=== PATIENT | female | born 1995 | race Caucasian/White ===

== ENCOUNTER 2018-06-08 11:18 | Emergency (ER) | payer SELFPAY ==
[2018-06-08 11:21] VITALS: BP 116/87; PULSE 73; RESP 18; TEMP 36.6; O2SAT 100; BMI 26.6
--- NOTE | 2018-06-08 11:35 | CT_ITS ---
STUDY: CT ABDOMEN AND PELVIS WITHOUT CONTRAST REASON FOR EXAM: Female, 23 years old. Generalized abdominal pain RADIATION DOSAGE (If Supplied By Facility): CTDIvol = ( 8.24 ) mGy, DLP = ( 397.52 ) mGycm TECHNIQUE: Transaxial images were obtained from the dome of the diaphragm to the symphysis pubis without oral contrast, and without intravenous contrast. Sagittal and coronal images were reconstructed. Individualized dose optimization techniques were used for this CT. COMPARISON: None. FINDINGS: The visualized lung bases are unremarkable. The visualized portions of the heart are within normal limits. Normal liver. Normal gallbladder and extrahepatic biliary system. Normal spleen. Normal pancreas. Normal bilateral adrenal glands. Normal right kidney. There is an extrarenal pelvis of the left kidney but no husam hydronephrosis. No urinary tract calcifications are seen. Normal visualized stomach. Normal small intestine. Normal colon. The appendix is visualized and appears normal. Normal abdominal aorta. Normal inferior vena cava. Normal retroperitoneum. Normal urinary bladder. Normal visualized uterus. Physiologic quantity of free fluid is identified in the midportion the pelvis. Normal abdominal wall. There is transitional anatomy of the lumbosacral junction with pseudoarticulation on the right side. No lytic or sclerotic bone lesion demonstrated. CT/Abdomen/Pelvis without Cont IMPRESSION: No hydronephrosis or urinary tract calcifications. Electronically Signed: Francisco Johnston MD at 13:26 EST , Service support ,
[2018-06-08] MEDS: Dicyclomine 10 MG Capsule 20 MG PO (11:45)
[2018-06-08] MEDS: Ondansetron 4 MG/2 ML Vial IV (11:45)
[2018-06-08 12:03] LABS: Mucous, Urine 0 SEEN /hpf (<or=2+); Red Blood Cells-Urine 0 SEEN /hpf (0-5); White Blood Cells 0 SEEN /hpf (0-5)
[2018-06-08 12:06] LABS: Absolute Lymphocyte Count 2.61 X10^3/ul (0.83-4.51); Absolute Neutrophil Count 3.4 X10^3/uL (2.0-7.7); Basophil# 0.02 X10^3/uL; Basophil% 0.3 % (0-1); Eosinophils% 2.9 % (0-5); Hematocrit 43.6 % (37-47); Hemoglobin 14.3 g/dl (12.0-15.0); Lymphocyte # 2.61 X10^3/ul (4.0); Lymphocyte % 38.3 % (19-41); Mean Corp Hgb Conc 32.8 g/gl (32-36); Mean Corpuscular Hgb 30.8 pg (27.0-32.0); Monocyte# 0.58 X10^3/uL; Monocyte% 8.5 % (0-10); Neutrophil # 3.39 X10^3/uL (2.7-7.7); Neutrophil % 49.9 % (47-70); POSITIVE COUNT NO; POSITIVE DIFFERENTIAL NO; POSITIVE MORPHOLOGY NO; Platelet Count 298 K/mm3 (150-450); RBC Distribution Width CV 12.2 % (11.6-14.6); RBC Distribution Width SD 41.5 fl (35.1-43.9); Red Blood Count 4.64 M/mm3 (4.2-5.4); White Blood Count 6.8 K/mm3 (4.4-11.0)
[2018-06-08 12:07] LABS: Color, Urine Yellow (Yellow); Glucose, Dipstick Normal (Normal); Ketone-Dipstick Negative (Negative); Leukocyte Esterase-Dipstick Negative /ul (Negative); Nitrite-Dipstick Negative (Negative); Occult Blood-Urine Negative /ul (Negative); Protein-Dipstick Negative (Negative); Specific Gravity, Urine 1.005 (1.002-1.030); Urine Bilirubin Dipstick Negative (Negative); Urine Clarity Clear (Clear); Urine Urobilinogen Normal (Normal)
[2018-06-08 12:08] LABS: Internal QC Validated? YES +Cl - CLEAR BKGD; Pregnancy, Urine Negative Negative
[2018-06-08 12:10] LABS: Bacteria RARE /hpf (None Seen); Squamous Epithelial Cells - UA 0-5 SEEN /hpf (5-10)
[2018-06-08 12:21] LABS: ALB/GLOB Ratio 1.2 RATIO (0.9-2.4); AST(SGOT) 14 U/L (15-37); Alanine Aminotransfer ALT/SGPT 18 U/L (13-56); Albumin, Serum 4.3 g/dL (3.2-5.0); Alkaline Phosphatase 70 U/L (45-117); Anion Gap 8 (5-15); BUN 13 mg/dL (7-18); BUN/Creat Ratio 15.5 RATIO (10-20); Calcium,Total 9.4 mg/dL (8.5-10.1); Chloride 109 mmol/L (98-107); Creatinine, Serum 0.84 mg/dL (0.55-1.02); EST Glomerular Filtration Rate 90 mL/min (>60); Est Glom Filt Rate - Afr Amer 109 mL/min (>60); Estimated Creatinine Clearance 94.53 ml/min; Globulin 3.7 g/dL (2.2-4.2); Glucose 93 mg/dL (74-106); Lipase 140 U/L (73-393); Potassium 3.9 mmol/L (3.5-5.1); Sodium Level 142 mmol/L (136-145)
--- NOTE | 2018-06-08 13:32 | ED.VISSUMM ---
- ER Visit Summary Date of Service: 06/08/18 Chief Complaint: Abdominal pain History of Present Illness: The patient is a 23 F who presents with abdominal pain. She has had this pain for 3 weeks. It is diffuse across her abdomen. Nothing makes it better but food makes it worse. She has had nausea without vomiting. No diarrhea or constipation. No urinary symptoms. She has had decreased appetite. No history of abdominal surgeries in the past. She was seen in urgent care who placed her on ranitidine but it did not help. Physical Examination: Vital signs reviewed. HEENT exam unremarkable. Heart is regular rate and rhythm without murmurs. Lungs are clear to auscultation. Abdomen is soft and nontender. Extremities reveal no edema. Skin exam normal. Neurologic exam normal. Test Results: Laboratory studies unremarkable. Urine and hCG negative. CAT scan of the abdomen pelvis reveals nothing acute Emergency Department Course and Treatment: Patient was given Bentyl orally and IV Zofran. She feels improved. I am not quite sure what the etiology of her pain is. I will give her Bentyl for home. She will follow-up with her PCP for further testing Treatment Plan: [] Disposition: Discharge Impression: Abdominal pain This note was generated with [employer] dictation software. It may contain incorrect words, spelling, and punctuation that were not noted in review of the chart prior to signing ED Disposition - Plan for ED Patient: Referrals: Care Physician,No Primary [Primary Care Provider] -
--- NOTE | 2018-06-08 13:33 | ED.DEP ---
ED Disposition - Plan for ED Patient: Disposition: Home or Assisted Living Instructions: ED Abdominal Pain Unkn Cause Prescriptions: Dicyclomine HCl [Bentyl] 20 mg PO TIDAC #20 cap Referrals: Care Physician,No Primary [Primary Care Provider] -
[2018-06-08 13:40] VITALS: BP 136/82; PULSE 79; RESP 16; O2SAT 98
== END 2018-06-08 13:42 | disposition home or self-care (01) ==
PROVIDERS: Emergency Provider Emergency Medicine
DX: R10.84 Generalized abdominal pain (principal)
CPT/HCPCS: 74176; 80053; 81001; 81025; 83690; 85025; 96374; 96375; 99284; J2405

== ENCOUNTER 2021-10-16 16:42 | Emergency (ER) | payer SELFPAY ==
[2021-10-16 16:43] VITALS: BP 131/89; PULSE 81; RESP 16; TEMP 36.9; O2SAT 100; BMI 36.2
--- NOTE | 2021-10-16 17:18 | EDS_ITS ---
HPI HPI - GI History of Present Illness Chief Complaint: Abd Pain Detail of Chief Complaint: Abdominal pain that started yesterday Informant: patient Abdominal Pain/Flank Pain Maximum Severity: 8/10 Nausea/Vomiting/Emesis GI Symptom: Positive for Nausea Narrative Narrative: Abdominal pain that started yesterday. Patient states the pain is more right- sided. Patient's not sure if she ate something that did not agree with her. Patient states that she had her gallbladder out in December of last year and ever since that time certain food seem to bother her. Patient woke up this morning and felt good not to go to muslim but while driving she started having more pain. She has had some nausea but no vomiting. She denies diarrhea. She denies blood in her stool or black tarry stool. Patient denies dysuria. Her last menstrual period was about a week ago. Prior similar symptoms: No PFSH PFSH Medical History (Updated 10/16/21 @ 18:[address] Nery Marte, ) Depression Home Medications Ranitidine [Zantac] 150 mg PO DAILY ALLERGIES 06/08/18 [History Last Taken 06/07/18 150 MG] dicyclomine 10 mg capsule 20 mg PO TIDAC #20 caps 06/08/18 [Rx Last Taken U nknown] dicyclomine 20 mg tablet 20 mg PO TID PRN cramps #20 tabs 10/16/21 [Rx Last Taken Unknown] Allergy/AdvReac Type Severity Reaction Status Date / Time No Known Allergies Allergy Verified 10/16/21 16:46 Surgical History (Updated 10/16/21 @ 17:48 by Soraya Gardner) Hx of cholecystectomy Social History Smoking Status: Never smoker ROS ROS ED Review of Systems ROS Unobtainable: other Constitutional Constitutional ED: Reports lethargy; Denies chills, fever(s), sweats or weight loss Eyes Eyes: Denies blurry vision, change in vision or diplopia ENT ENT ED: Denies rhinorrhea or sore throat Cardiovascular Cardiovascular: Reports chest pain and racing heartbeat; Denies orthopnea Respiratory/Chest Respiratory/Chest: Reports dyspnea and dyspnea on exertion; Denies cough, orthopnea or sputum Gastrointestinal Gastrointestinal: Reports abdominal pain and nausea; Denies diarrhea or vomiting Genitourinary Genitourinary ED: Denies dysuria, hematuria or urinary frequency Musculoskeletal Musculoskeletal: Denies arthralgias, back pain, myalgias or neck pain Integumentary Denies abscess, Abrasions or rash Neurologic Neurologic: Denies headache(s) or weakness Psychiatric Psychiatric: Denies anxiety, depression or suicidal thoughts Endocrine Endocrinology: Denies polydipsia, polyphagia or polyuria Hematologic/Lymphatic Hematologic/Lymphatic: Denies easy bleeding, easy bruising or lymphadenopathy Allergic/Immunologic Allergic/Immunologic ED: Denies mouth swelling, tongue swelling or urticaria EXAM Physical Exam Const Vital Signs: 10/16/21 16:43 Temperature 98.5 F Temperature Source Temporal Pulse Rate 81 Respiratory Rate 16 Blood Pressure 131/89 H Blood Pressure Mean 103 Pulse Ox 100 Oxygen Delivery Method Room Air Positive well nourished and well developed General Appearance ED: well developed and NAD HEENT Reports TM's clear and moist mucous membranes normocephalic and atraumatic; Negative for trauma or tenderness Tympanic Membrane ED: Yes TM's clear Eyes PERRL and EOMs intact bilaterally General Eye ED: Negative for pale conjunctiva or scleral icterus Neck no lymphadenopathy, supple and no JVD General: Negative for tenderness Chest Wall inspection of chest normal and palpation of chest normal Chest: Negative for tenderness Resp normal respiratory effort and clear to auscultation bilaterally Effort and Inspection: Negative for respiratory distress or pain with movement Auscultation: Negative for rhonchi, wheezes or diminished lung sounds Cardio regular rate, regular rhythm, S1 normal heart sound, S2 normal heart sound and no murmurs Peripheral Pulses: pulses 2+ throughout GI normal to inspection, nondistended, normoactive bowel sounds, soft to palpation, non-distended and no masses GI Narrative: Patient with really diffuse tenderness palpation over the right upper quadrant as well as the epigastric region. She has tenderness and guarding over the right lower quadrant. She got some mild tenderness over the left lower quadrant. There is no rebound, rigidity, or peritoneal signs. Back/Spine no CVA tenderness and no thoracic nor lumbar tenderness Extremity normal to inspection General Extremety ED: Negative for edema General Extremity: Negative for edema Neuro oriented x3, CN's II-XII intact bilaterally, no sensory deficits noted and gait normal Sensorium / Orientation: awake, alert, oriented to person, oriented to place and oriented to time Motor Exam: strength 5/5 throughout and strength abnormal Psych mental status grossly normal Skin no rashes or lesions noted and no wounds MDM MDM MDM Narrative Medical decision making narrative: IV line established on arrival. Patient did not want thing for pain. Patient had normal lab work-up and normal urinalysis. She had a CT scan of the M pelvis without contrast that was essentially unremarkable. At this point etiology of patient pain is unclear. Patient states that she had similar pain up to 6 months before her gallbladder came out and she has had intermittent pain like this that will come and then disappear and then come back. Patient will be given a referral to GI for follow-up. She is given a prescription for Bentyl. Patient advised to return if worsening pain, fever, vomiting, or condition should worsen anyway. Lab Data Attestation: I reviewed the patient's lab results. Labs: Laboratory Results - last 24 hr 10/16/21 10/16/21 10/16/21 17:30 17:37 17:37 WBC 9.4 RBC 4.86 Hgb 12.6 Hct 40.9 MCV 84.2 MCH 25.9 L MCHC 30.8 L RDW Std Deviation 49.7 H RDW Coeff of Otilio 16.0 H Plt Count 388 MPV 9.6 Immature Gran % (Auto) 0.300 Neut % (Auto) 66.5 Lymph % (Auto) 24.1 [place] % (Auto) 6.8 Eos % (Auto) 1.8 Baso % (Auto) 0.5 Absolute Neuts (auto) 6.2 Absolute Lymphs (auto) 2.26 Nucleated RBC % 0 Sodium 142 Potassium 3.7 Chloride 110 H Carbon Dioxide 28.0 Anion Gap 4 L BUN 15 Creatinine 1.01 Estim Creat Clear Calc 67.34 Est GFR (MDRD) Af Amer 85 Est GFR (MDRD) Non-Af 71 BUN/Creatinine Ratio 14.9 Glucose 100 Calcium 9.2 Total Bilirubin 0.20 AST 15 ALT 18 Alkaline Phosphatase 84 Total Protein 7.6 Albumin 3.6 Globulin 4.0 Albumin/Globulin Ratio 0.9 Lipase 113 Serum , Qual Urine Color Yellow Urine Clarity Clear Urine pH 7.0 Ur Specific Spring 1.015 Urine Protein 15 H Urine Glucose (UA) Normal Urine Ketones Negative Urine Occult Blood Negative Urine Nitrite Negative Urine Bilirubin Negative Urine Urobilinogen Normal Ur Leukocyte Esterase 100 H Urine RBC 0 SEEN Urine WBC 0-5 SEEN Ur Squamous Epith Cells 5-10 SEEN Urine Bacteria 2+ Urine Mucus 0 SEEN 10/16/21 17:37 WBC RBC Hgb Hct MCV MCH MCHC RDW Std Deviation RDW Coeff of Otilio Plt Count MPV Immature Gran % (Auto) Neut % (Auto) Lymph % (Auto) [place] % (Auto) Eos % (Auto) Baso % (Auto) Absolute Neuts (auto) Absolute Lymphs (auto) Nucleated RBC % Sodium Potassium Chloride Carbon Dioxide Anion Gap BUN Creatinine Estim Creat Clear Calc Est GFR (MDRD) Af Amer Est GFR (MDRD) Non-Af BUN/Creatinine Ratio Glucose Calcium Total Bilirubin AST ALT Alkaline Phosphatase Total Protein Albumin Globulin Albumin/Globulin Ratio Lipase Serum , Qual NEGATIVE Urine Color Urine Clarity Urine pH Ur Specific Spring Urine Protein Urine Glucose (UA) Urine Ketones Urine Occult Blood Urine Nitrite Urine Bilirubin Urine Urobilinogen Ur Leukocyte Esterase Urine RBC Urine WBC Ur Squamous Epith Cells Urine Bacteria Urine Mucus Radiography Diagnostic Testing: Clinical Impression(s) from Imaging Studies Abdomen/Pelvis CT 10/16/21 17:18 IMPRESSION: Cholecystectomy. No acute abnormality. Electronically Signed: Fabian Vanessa MD at 18:36 EDT , Discharge Plan Triage Chief Complaint: Abd Pain ED Provider: Nery Marte Dx/Rx/DC Orders Clinical Impression: Abdominal pain Instructions: ED Abdominal Pain Unkn Cause Fem Prescriptions: New dicyclomine 20 mg tablet 20 mg PO TID PRN (Reason: cramps) Qty: 20 0RF No Action Ranitidine [Zantac] 150 MG tablet 150 mg PO DAILY dicyclomine 10 MG capsule 20 mg PO TIDAC Qty: 20 0RF Primary Care Provider: Care Physician,No Primary Referrals: Friend,Christiano, DO [STAFF PHYSICIAN] - Care Physician,No Primary [Primary Care Provider] - Disposition Disposition: Home, Self Care
--- NOTE | 2021-10-16 17:18 | CT_ITS ---
EXAM: CT ABDOMEN AND PELVIS WITHOUT INTRAVENOUS CONTRAST CLINICAL INDICATION: Pain TECHNIQUE: Helically acquired images were obtained of the abdomen and pelvis without intravenous contrast. This CT exam was performed using one or more of the following dose reduction techniques: automated exposure control, adjustment of the mA and/or kV according to patient size, and/or use of iterative reconstruction technique. This report was created using [employer] report generation technology. RADIATION DOSE: CTDIvol = 21.23 mGy, DLP = 1336.65 mGy-cm. COMPARISON: 06/08/2018. FINDINGS: LOWER THORAX: Unremarkable. Lung bases are clear. No cardiomegaly. No significant pericardial effusion. ABDOMEN: LIVER: Unremarkable. Homogeneous. GALLBLADDER AND BILE DUCTS: Cholecystectomy. No intra- or extrahepatic biliary ductal dilation. PANCREAS: Unremarkable. No focal cystic mass. SPLEEN: Unremarkable. Normal size without focal cystic or solid mass. ADRENALS: Unremarkable. No nodules. KIDNEYS AND URETERS: Unremarkable. Normal renal size and position. No hydronephrosis. STOMACH AND BOWEL: Unremarkable. No stomach or bowel distention. No focal inflammatory change. PELVIS: APPENDIX: Normal appendix. BLADDER: Unremarkable. REPRODUCTIVE: Unremarkable as visualized. No mass. ABDOMEN and PELVIS: INTRAPERITONEAL SPACE: Unremarkable. No ascites or other fluid collection. No free air. BONES/JOINTS: Unremarkable. No suspicious lytic or blastic abnormality. SOFT TISSUES: Unremarkable. No discrete abdominal or pelvic wall hernia. VASCULATURE: Unremarkable. Abdominal aorta is non-dilated. LYMPH NODES: Unremarkable. No enlarged lymph nodes. CT/Abdomen/Pelvis without Cont IMPRESSION: Cholecystectomy. No acute abnormality. Electronically Signed: Fabian Vanessa MD at 18:36 EDT ,
[2021-10-16 17:50] LABS: Mucous, Urine 0 SEEN /hpf (<or=2+); Red Blood Cells-Urine 0 SEEN /hpf (0-5)
[2021-10-16] MEDS: 0.9% Normal Saline 1,000 ML 125 ML IV (17:51)
[2021-10-16 17:52] LABS: Absolute Lymphocyte Count 2.26 X10^3/uL (0.83-4.51); Absolute Neutrophil Count 6.2 X10^3/uL (2.0-7.7); Basophil# 0.05 X10^3/uL; Basophil% 0.5 % (0-1); Eosinophil# 0.17 X10^3/uL; Eosinophils% 1.8 % (0-5); Hematocrit 40.9 % (37-47); Hemoglobin 12.6 g/dL (12.0-15.0); Lymphocyte # 2.26 X10^3/ul (0.83-4.51); Lymphocyte % 24.1 % (19-41); Mean Corp Hgb Conc 30.8 g/dL (32-36); Mean Corpuscular Hgb 25.9 pg (27.0-32.0); Mean Corpuscular Volume 84.2 fL (81-99); Mean Platelet Vol. 9.6 fl (6.2-12.0); Monocyte# 0.64 X10^3/uL; Monocyte% 6.8 % (0-10); NRBC Flagged by Analyzer 0 % (0-5); Neutrophil # 6.24 X10^3/uL (2.7-7.7); Neutrophil % 66.5 % (47-70); Platelet Count 388 K/mm3 (150-450); RBC Distribution Width SD 49.7 fl (35.1-43.9); Red Blood Count 4.86 M/mm3 (4.2-5.4); White Blood Count 9.4 K/mm3 (4.4-11.0)
[2021-10-16 17:55] LABS: Color, Urine Yellow (Yellow); Glucose, Dipstick Normal (Normal); Ketone-Dipstick Negative (Negative); Leukocyte Esterase-Dipstick 100 /ul (Negative); Nitrite-Dipstick Negative (Negative); Occult Blood-Urine Negative /ul (Negative); Protein-Dipstick 15 mg/dl (Negative); Specific Gravity, Urine 1.015 (1.002-1.030); Urine Bilirubin Dipstick Negative (Negative); Urine Clarity Clear (Clear); Urine Urobilinogen Normal (Normal)
[2021-10-16 18:01] LABS: Internal QC Validated? YES +Cl - CLEAR BKGD; Pregnancy, Serum, hCG Quali. NEGATIVE Negative
[2021-10-16 18:04] LABS: Bacteria 2+ /hpf (None Seen); Squamous Epithelial Cells - UA 5-10 SEEN /hpf (5-10); White Blood Cells 0-5 SEEN /hpf (0-5)
[2021-10-16 18:09] LABS: ALB/GLOB Ratio 0.9 RATIO (0.9-2.4); AST(SGOT) 15 U/L (15-37); Alanine Aminotransfer ALT/SGPT 18 U/L (13-56); Albumin, Serum 3.6 g/dL (3.2-5.0); Alkaline Phosphatase 84 U/L (45-117); Anion Gap 4 (5-15); BUN 15 mg/dL (7-18); BUN/Creat Ratio 14.9 RATIO (10-20); Calcium,Total 9.2 mg/dL (8.5-10.1); Chloride 110 mmol/L (98-107); Creatinine, Serum 1.01 mg/dL (0.55-1.02); EST Glomerular Filtration Rate 71 mL/min (>60); Est Glom Filt Rate - Afr Amer 85 mL/min (>60); Estimated Creatinine Clearance 67.34 ml/min; Glucose 100 mg/dL (74-106); Lipase 113 U/L (73-393); Potassium 3.7 mmol/L (3.5-5.1); Protein, Total 7.6 g/dL (6.4-8.2); Sodium Level 142 mmol/L (136-145)
== END 2021-10-16 19:01 | disposition home or self-care (01) ==
PROVIDERS: Emergency Provider Emergency Medicine; Visit Provider Emergency Medicine
DX: R10.9 Unspecified abdominal pain (principal); R11.0 Nausea; Z90.49 Acquired absence of other specified parts of digestive tract
CPT/HCPCS: 74176; 80053; 81001; 83690; 84703; 85025; 99283; A4216

== ENCOUNTER → 2021-11-14 | Outpatient (CLI) | payer SELFPAY ==
[2021-11-14 14:22] LABS: Erythrocyte Sedimentation Rate 29 mm/hr (0-30)
[2021-11-14 14:47] LABS: Hemoglobin A1c 5.5 % (3.8-5.6)
[2021-11-14 15:06] LABS: CRP < 2.90 mg/L (0.0-3.0); Free T3 2.2 pg/mL (2.18-3.98); LDH 261 U/L (84-246); T4 Free Direct 0.92 ng/dL (0.76-1.46); Thyroid Stim Hormone (TSH) 0.67 uIU/mL (0.358-3.74)
[2021-11-16 13:08] LABS: Anti-Centromere B Ab <0.2 AI (0.0-0.9); Anti-Chromatin <0.2 AI (0.0-0.9); Anti-Jo <0.2 AI (0.0-0.9); Anti-Scleroderma-70 AB <0.2 AI (0.0-0.9); RNP Ab <0.2 AI (0.0-0.9); SJOGREN'S Anti-SS-A test < 0.2 AI (0.0-0.9); SJOGREN'S Anti-SS-B test < 0.2 AI (0.0-0.9); Smith Ab <0.2 AI (0.0-0.9)
[2021-11-16 13:19] LABS: Anti-dsDNA Ab 1 IU/mL (0-9)
[2021-11-16 14:09] LABS: Endomysial Antibody IgA Negative (Negative)
[2021-11-17 07:37] LABS: Immunoglobulin A 152 mg/dL (87-352); t-Transglutaminase IgA <2 U/mL (0-3)
[2021-11-19 12:08] LABS: Albumin 3.6 g/dL (2.9-4.4); Alpha-1-Globulins 0.2 g/dL (0.0-0.4); Alpha-2-Globulins 0.9 g/dL (0.4-1.0); Cytoplasmic Ab (C-ANCA) <1:20 titer (Neg:<1:20); Gamma Globulin 1.3 g/dL (0.4-1.8); Immunoglobulin A 142 mg/dL (87-352); Immunoglobulin E 9 IU/mL (6-495); Immunoglobulin G 1216 mg/dL (586-1602); Immunoglobulin M 114 mg/dL (26-217); PROEL- TOTAL PROTEIN 7.2 g/dL (6.0-8.5)
[2021-11-20 15:26] LABS: Perinuclear Ab (P-ANCA) <1:20 titer (Neg:<1:20)
== END | disposition home or self-care (01) ==
PROVIDERS: Visit Provider Internal Medicine Gastroenterology
DX: R10.9 Unspecified abdominal pain (principal)
CPT/HCPCS: 36415; 82784; 82785; 83036; 83516; 83615; 84165; 84439; 84443; 84481; 85652; 86140; 86225; 86235; 86255; 86256; 86334

== ENCOUNTER 2021-12-03 10:41 | Emergency (ER) | payer MEDICAID, SELFPAY ==
[2021-12-03 10:45] VITALS: BP 115/67; PULSE 65; RESP 17; TEMP 36.7; O2SAT 100; BMI 35.9
--- NOTE | 2021-12-03 10:52 | RAD_ITS ---
STUDY: X-RAY - LEFT KNEE REASON FOR EXAM: Female, 26 years old. injury fell from a horse. TECHNIQUE: 4 view(s) of the knee. COMPARISON: None. FINDINGS: Normal visualized distal femur. Normal visualized proximal tibia and fibula. Normal proximal tibiofibular articulation. There is no demonstrated fracture. Normal medial femorotibial compartment. Normal lateral femorotibial compartment. Normal patellofemoral articulation. There is no demonstrated joint effusion. The soft tissue structures are unremarkable. RAD/Knee 4 or More Views IMPRESSION: Normal x-ray examination of the knee. Electronically Signed: Cm Browning MD at 12:09 EDT ,
--- NOTE | 2021-12-03 10:53 | EX.ED.GENINJ ---
HPI History of Present Illness Chief Complaint: Fall Informant: patient Narrative Narrative: 26-year-old female was on a riding horse today when she was thrown off the animal. She notes that she landed on her left knee. She notes pain in the left knee and denies any other injuries. Full range of motion and ambulation. Specifically denies any head neck back chest or abdominal symptoms. She denies any pain in the extremities other than the left knee. PFSH PFS Medical History Back problem Depression Headache Hearing problem Home Medications Ranitidine [Zantac] 150 mg PO DAILY ALLERGIES 06/08/18 [History Last Taken 06/07/18 150 MG] pantoprazole 40 mg tablet,delayed release 40 mg PO DAILY #30 tabs 11/14/21 [Rx Last Taken Unknown] Allergy/AdvReac Type Severity Reaction Status Date / Time No Known Allergies Allergy Verified 12/03/21 10:42 Surgical History Hx of cholecystectomy Social History (Updated 12/03/21 @ 10:[address] Jorge Dalal DO) Smoking Status: Never smoker substance use type: does not use ROS ROS ED Constitutional Constitutional ED: Denies chills, fever(s) or weight loss Eyes Eyes: Denies change in vision or diplopia ENT ENT ED: Denies ear pain, rhinorrhea or sore throat Cardiovascular Cardiovascular: Denies chest pain, orthopnea, palpitations or racing heartbeat Respiratory/Chest Respiratory/Chest: Denies cough, dyspnea or orthopnea Gastrointestinal Gastrointestinal: Denies abdominal pain, diarrhea, nausea or vomiting Genitourinary Genitourinary ED: Denies dysuria, hematuria or urinary frequency Musculoskeletal Musculoskeletal: Reports other Details: See history of present illness ; Denies arthralgias, back pain, myalgias or neck pain Integumentary Denies abscess or rash Neurologic Neurologic: Denies headache(s) or weakness Psychiatric Psychiatric: Denies anxiety, depression, suicidal ideation or suicidal thoughts Endocrine Endocrinology: Denies polydipsia, polyphagia or polyuria Allergic/Immunologic Allergic/Immunologic ED: Denies mouth swelling, tongue swelling or urticaria EXAM Physical Exam Const Vital Signs: 12/03/21 10:45 Temperature 98.1 F Temperature Source Temporal Pulse Rate 65 Respiratory Rate 17 Blood Pressure 115/67 Blood Pressure Mean 83 Pulse Ox 100 Oxygen Delivery Method Room Air Positive well nourished, well developed and obese General Appearance ED: well developed Nutritional Appearance: obese HEENT Reports normocephalic, head/scalp atraumatic and moist mucous membranes Eyes PERRL and EOMs intact bilaterally Neck full ROM, no lymphadenopathy, supple and no JVD Resp normal respiratory effort and clear to auscultation bilaterally Cardio regular rate, regular rhythm and no murmurs GI normal to inspection, nondistended, normoactive bowel sounds and non-tender Palpation: soft Back/Spine no CVA tenderness and normal ROM Extremity Extremity Narrative: Patient has tenderness to palpation in the suprapatellar region. Ligaments appear stable. I do not palpate an effusion. Extensor mechanism is intact. General Extremety ED: Negative for edema General Extremity: Negative for edema Neuro oriented x3 and CN's II-XII intact bilaterally Sensorium / Orientation: alert Motor Exam: strength 5/5 throughout Psych mental status grossly normal Mood & Affect: Negative for depressed or tearful Skin no rashes or lesions noted and no wounds MDM MDM MDM Narrative Medical decision making narrative: My interpretation of the plain films of the left knee is no acute fracture. Clinically the patient appears to have a traumatic bursitis. Patient been placed in Akbar wrap instructions on ice and as needed crutches. Radiography Diagnostic Testing: Clinical Impression(s) from Imaging Studies Knee X-Ray 12/03/21 10:52 IMPRESSION: Normal x-ray examination of the knee. Electronically Signed: Cm Browning MD at 12:09 EDT Reading Location ID and State: [facility] / [place] , Service support , Discharge Plan Triage Chief Complaint: Fall ED Provider: Jorge Dalal Dx/Rx/DC Orders Clinical Impression: Hematoma of left knee region, Fall from horse, Bursitis, traumatic Prescriptions: No Action pantoprazole 40 mg tablet,delayed release (DR/EC) 40 mg PO DAILY Qty: 30 3RF Ranitidine [Zantac] 150 MG tablet 150 mg PO DAILY Primary Care Provider: Care Physician,No Primary Referrals: Cady Palm MD [Med Staff - Helicopter Repairer] - As Needed (for primary care) Care Physician,No Primary [Primary Care Provider] - Disposition Disposition: Home, Self Care
[2021-12-03 12:20] VITALS: RESP 16
[2021-12-03] MEDS: Ibuprofen 600 MG Tablet PO (12:30)
== END 2021-12-03 12:32 | disposition home or self-care (01) ==
PROVIDERS: Emergency Provider Emergency Medicine; Visit Provider Emergency Medicine
DX: S80.02XA Contusion of left knee, initial encounter (principal); V80.010A Animal-rider injured by fall from or being thrown from horse in noncollision accident, initial encounter; Y93.52 Activity, horseback riding; E66.9 Obesity, unspecified; M70.52 Other bursitis of knee, left knee; Z68.35 Body mass index [BMI] 35.0-35.9, adult
CPT/HCPCS: 73564; 99284

== ENCOUNTER 2021-12-13 14:35 | Day surgery (SDC) | payer OTHER, SELFPAY ==
[2021-12-13] VITALS (8 sets, daily range): BP systolic 95–131; BP diastolic 57–72; PULSE 64–87; RESP 16–18; TEMP 36.5–37.1; O2SAT 96–98; BMI 35.9
[2021-12-13] MEDS: Lactated Ringers 1,000 ML 15 ML IV (14:45)
[2021-12-13 14:57] LABS: Internal QC Validated? YES +Cl - CLEAR BKGD; Pregnancy, Urine Negative Negative
--- NOTE | 2021-12-13 15:30 | EGD_PTH ---
PATIENT: ATILIO JASMINE LOC: EN U#:[id number] AGE/SX: 26/F ROOM: RE12/13/[address]: Dr. Christiano Morales DO : 1995 BED: DIS: 12/13/2021 SPEC #: [id number] RECD: 12/13/21 16:42 STATUS: BENJAMIN CARIDAD #: [id number] JENIFER: 12/13/21 15:[address]: Christiano Morales DEPT: SURGICAL PATHOLOGY RECD BY: Luis F Alvarado ENTERED: 12/14/21 08:15 SP TYPE: EGD BIOPSY TRINY DR: Shobha Primary Care Phys Tissues: A - Duodenum, NOS B - Gastric mucous membrane C - Esophagus, NOS Procedures: Special Stain Group II Surgery Specimen Level IV Alcian Blue/PAS (control) HEADER OPERATION: EGD with biopsies ([facility] [place]) PRE-OP DIAGNOSIS: Abdominal pain TISSUE SUBMITTED: A ? Duodenum biopsy, B ? Gastric antrum biopsy for H. pylori and path, C ? Distal esophagus biopsy MICROSCOPIC DIAGNOSIS A. Duodenum, biopsy: Fragments of duodenal mucosa with mild nonspecific chronic inflammation. B. Gastric antrum, biopsy: Mild gastritis. See microscopic description and comment. C. Distal esophagus, biopsy: Gastroesophageal junctional mucosa with chronic inflammation. Intestinal metaplasia (goblet cell metaplasia) not identified. See comment. SJ:rg 12/15/2021 COMMENT B. The results of immunohistochemistry for Helicobacter pylori will be reported separately ([id number]). C. Alcian blue/PAS stain with matched control is used in the evaluation of the specimen. MICROSCOPIC DESCRIPTION Slides are reviewed. B. The specimen shows fragments of gastric mucosa with chronic inflammatory cell infiltrates in the lamina propria consisting of lymphocytes and plasma cells, consistent with mild chronic gastritis. GROSS DESCRIPTION A - Received in fixative is one container labeled with the patient's name and designated duodenum biopsy. The specimen consists of two irregular fragments of light sheriff soft tissue that in aggregate measure 0.6 x 0.3 x 0.1 cm. The specimen is totally submitted in one cassette. B - Received in fixative is one container labeled with the patient's name and designated gastric antrum biopsy. The specimen consists of multiple irregular fragments of light sheriff soft tissue that in aggregate measure 0.8 x 0.6 x 0.1 cm. The specimen is totally submitted in one cassette. C - Received in fixative is one container labeled with the patient's name and designated distal esophagus biopsy. The specimen consists of two irregular fragments of light sheriff soft tissue that in aggregate measure 0.6 x 0.3 x 0.1 cm. The specimen is totally submitted in one cassette. / SJ:rg 12/14/2021 TC:3 CPT: 92843 x3, 74681
--- NOTE | 2021-12-13 15:30 | IMM_PTH ---
PATIENT: ATILIO JASMINE LOC: EN U#:[id number] AGE/SX: 26/F ROOM: RE12/13/[address]: Dr. Christiano Morales DO : 1995 BED: DIS: 12/13/2021 SPEC #: [id number] RECD: 12/14/21 09:24 STATUS: BENJAMIN RERabia #: [id number] JENIFER: 12/13/21 15:[address]: Christiano Morales DEPT: IMMUNOHISTOCHEMISTRY RECD BY: Chrissy Pichardo ENTERED: 12/14/21 09:25 SP TYPE: IMMUNO OTHR DR: Shobha Primary Care Phys Tissues: B - Stomach, NOS Procedures: H Pylori (initial) PHYSICIAN & INSTITUTION [place] [id number] SPECIMEN INFORMATION: Tissue Source: B ? Gastric antrum Clinical Info: Abdominal pain Specimen Number: [id number] CPT code: 76410 METHODOLOGY: Deparaffinized sections of prefer/formalin-fixed tissue or PAP/DQ stained slides are incubated with monoclonal/polyclonal antibodies/oligonucleotide probes. Localization is made via biotin free immunoperoxidase method. Appropriate controls are performed and reacted as expected. Results on target cell population are indicated in the following table: RESULTS: ANTIBODY / CLONE RESULT Block B H Pylori (polyclonal) negative These tests were developed and their performance characteristics determined by [facility]. They may not have been cleared or approved by the U.S. Food and Drug Administration. The FDA has determined that such clearance or approval is not necessary. The above immunohistochemical/dualISH markers are ordered and reviewed by the Pathologist. INTERPRETATION: B. Gastric antrum, biopsy: Negative for Helicobacter pylori organisms. SJ:june 12/15/2021
--- NOTE | 2021-12-13 15:38 | PCM.HP.BLA ---
History and Physical Date of Admission: 12/13/21 ATILIO SWEET, is a 26 F who presents to the office today for Follow up. Alee Established with this clinic 08.24.21 with referral from [facility] for evaluation of LUQ pain. She has been having difficulty with abdominal discomfort/bloating since 2015. She underwent cholecystectomy as noted below without symptom resolution. Appendectomy performed 1999. She reports increased eosinophils in GI tract. Bowel movement alternated between hard and diarrhea. Her normal is yellow and [place]. PMH ovarian and uterine cancer s/p surgery. FH includes arthritis, autoimmune (RA and myasthenia gravis). Cholecystectomy performed 02.21.16 through [facility] with intraoperative cholangiogram which was unremarkable. Barium Swallow 03.19.17 performed without [address] result. CT abd/pel [facility] finding nonobstructing small bowel intussusception in LUQ. Bilateral nonobstructing renal calculi. EGD performed finding LA Grade A reflux esophagitis; gastritis; esophagogastric junction inflammation with patchy pancreatic heterotopia and reactive changes without metaplasia; reflux esophagogastric antrum with reactive gastropathy and inflammation. H.Pylori negative. EGD and colonoscopy performed . EGD found stomach to have reactive epithelial changes and chronic inflammation; gastritis; non-severe reflux esophagitis; esophagus without abnormality. H.Pylori negative. Colonoscopy without visual or pathologic changes. Upper GI with small bowel performed 05.16.21 and was an unremarkable exam. Colonic transit study 06.06.21 small bowel ileus likely due to retained stool; likely left nephrolithiasis. Biochemical workup ESR, LDH, creatine kinase, PEP, globulin, CRP, GAME, SUSANA, LEFTY comp, ANCA, celiac, lyme WNL. Plan LV 08.24.21: Abdominal pain ? biochemical workup. Start budesonide 3mg. Reports that she is doing better with abdominal pain and bloating with an improvement of severity; continues to be present during waking hours and worsening with meals. Previously small amounts of food caused symptoms, she can now eat about half a meal before she feels unwell. Continues to be without food triggers. She continues with budesonide 3mg QD; she notes some joint pain and stiffness but is unsure if this is r/t the medication. ROS Const Constitutional: No anorexia, fatigue, fever(s), weight change or sleep problems Eyes Eyes: No change in vision ENT ENT: No abnormal hearing, difficulty swallowing, mouth lesions, tongue swelling or throat swelling Resp Respiratory: No cough or shortness of breath Cardio Cardiology: No chest pain at rest, chest pain with exertion, shortness of breath or dyspnea on exertion Gastro GI: No difficulty swallowing Genitourinary-Female: No difficulty urinating or burning urination Musc Musculoskeletal: No joint pain, joint swelling, muscle weakness or decreased muscle mass Skin Skin: No hair loss in leg, yellowing of the eye, itchy eyes, rash, skin ulcer or skin swelling Neuro Neurology: No abnormal hearing, abnormal movements, confusion, unsteady gait/balance or memory loss Psych Psychiatric: No anxiety, No confusion and No memory loss Endo Endocrine: No fatigue or weight change Aller/Imm Allergy/Immunologic: No itchy eyes, throat swelling or tongue swelling Ajay/Lymp Hematologic/Lymphatic: No easy bleeding, easy bruising or enlarged lymph nodes Exam Const General: cooperative and comfortable Nutritional Appearance: average body habitus and well nourished HENAR Head: normal to inspection Ears: hearing grossly normal bilaterally Nose: external nose normal Face and sinus: normal facial exam Mouth: oral mucosae normal Throat: posterior oropharynx normal Eyes General: appearance normal, both eyes and all related structures Neck Neck: normal visual inspection Chest Chest palpation & inspection: normal inspection of the chest and normal palpation of entire chest wall Resp Effort & Inspection: normal respiratory effort Auscultation: Bilateral: Clear to Auscultation Cardio Palpation: normal PMI Rate: regular rate Rhythm: regular rhythm GI Inspection: normal to inspection Auscultation: normal bowel sounds Percussion: normal to percussion Palpation: no hepatosplenomegaly Skin General: no rashes or lesions noted Neuro General: patient alert Extrem General: normal to inspection Psych Affect: normal affect Quality Reporting Tobacco Screening ([facility] 138) Smoking Status: Never smoker Assessment and Plan Assessment and Plan (1) Abdominal pain: ?Status:?Chronic ?Plan: The differential diagnosis for abdominal pain does include celiac disease, gastritis, peptic ulcer disease, pancreatic exocrine insufficiency, gastroparesis associated with diabetes, hypothyroidism.? We will perform upper endoscopy and do biochemical testing including CRP, LDH, ESR, CRP, celiac profile, immunoglobulins G, A, M, E, immunofixation with protein electrophoresis, T3, free T4, TSH and hemoglobin A1c.? She was explained alternatives, risk, benefits including outstanding bleeding, infection, sepsis, perforation, need for emergent .? She will have an ASA of 1. This consultation took approximately 25 minutes. ? ? ? Orders: Orders CRP Today R10.9 - Unspecified abdominal pain ? LDH Today R10.9 - Unspecified abdominal pain ? Erythrocyte Sed Rate Today R10.9 - Unspecified abdominal pain ? LEFTY Comprehensive Panel Today R10.9 - Unspecified abdominal pain ? ANCA Today R10.9 - Unspecified abdominal pain ? Celiac Disease Profile Today R10.9 - Unspecified abdominal pain ? Immunoglobulins G/A/M/E Today R10.9 - Unspecified abdominal pain ? SUSANA + Protein Elect, Serum Today R10.9 - Unspecified abdominal pain ? Free T3 Today R10.9 - Unspecified abdominal pain ? T4 Free Direct Today R10.9 - Unspecified abdominal pain ? Thyroid Stim Hormone (TSH) Today R10.9 - Unspecified abdominal pain ? Hemoglobin A1c Today R10.9 - Unspecified abdominal pain ? Medications: New pantoprazole 40 mg? PO DAILY 30 tabs 3RF ? ? I have re-examined the patient. There are no clinical changes since date of exam.
--- NOTE | 2021-12-13 16:23 | OP.EGD_ITS ---
Patient Name: Anthony Elliott Procedure Date: 12/13/2021 3:46 PM Date of : 1995 Age: 26 Procedure: Upper GI endoscopy Indications: Epigastric abdominal pain, Functional Dyspepsia Providers: Christiano Morales DO Medicines: Monitored Anesthesia Care Patient Profile: This is a 26 year old female. Refer to note in patient chart for documentation of history and physical. Patient has symptoms of chronic epigastric abdominal pain. Complications: No immediate complications. Procedure: Pre-Anesthesia Assessment: - Prior to the procedure, a History and Physical was performed, and patient medications and allergies were reviewed. The risks and benefits of the procedure and the sedation options and risks were discussed with the patient. All questions were answered and informed consent was obtained. Patient identification and proposed procedure were verified by the physician in the pre-procedure area. Mental Status Examination: alert and oriented. Airway Examination: normal oropharyngeal airway and neck mobility. Respiratory Examination: clear to auscultation. CV Examination: normal. Prophylactic Antibiotics: The patient does not require prophylactic antibiotics. Prior Anticoagulants: The patient has taken no previous anticoagulant or antiplatelet agents. After reviewing the risks and benefits, the patient was deemed in satisfactory condition to undergo the procedure. The anesthesia plan was to use moderate sedation / analgesia (conscious sedation). Immediately prior to administration of medications, the patient was re-assessed for adequacy to receive sedatives. The heart rate, respiratory rate, oxygen saturations, blood pressure, adequacy of pulmonary ventilation, and response to care were monitored throughout the procedure. The physical status of the patient was re-assessed after the procedure. After obtaining informed consent, the endoscope was passed under direct vision. Throughout the procedure, the patient's blood pressure, pulse, and oxygen saturations were monitored continuously. The gastroscope was introduced through the mouth, and advanced to the second part of duodenum. The upper GI endoscopy was accomplished without difficulty. The patient tolerated the procedure well. Scope In: 3:54:51 PM Scope Out: 4:02:41 PM Total Procedure Duration Time 0 hours 7 minutes 50 seconds Findings: The Z-line was irregular and was found 37 cm from the incisors. Biopsies were taken with a cold forceps for histology. Verification of patient identification for the specimen was done. Estimated blood loss was minimal. Patchy mildly erythematous mucosa without bleeding was found in the gastric antrum. Biopsies were taken with a cold forceps for histology. Verification of patient identification for the specimen was done. Estimated blood loss was minimal. No gross lesions were noted in the first portion of the duodenum. Impression: - Z-line irregular, 37 cm from the incisors. Biopsied. - Erythematous mucosa in the antrum. Biopsied. - No gross lesions in the first portion of the duodenum. Recommendation: - Discharge patient to home. - Resume previous diet. - Continue present medications. - Await pathology results. Procedure Code(s): --- Professional --- 70929, Esophagogastroduodenoscopy, flexible, transoral; with biopsy, single or multiple CPT copyright 2017 [employer]. All rights reserved. The codes documented in this report are preliminary and upon [employer] review may be revised to meet current compliance requirements. Christiano Morales DO 12/13/2021 4:23:11 PM This report has been signed electronically. Number of Addenda: 0 Note Initiated On: 12/13/2021 3:46 PM
--- NOTE | 2021-12-13 16:23 | OP.CCLET_ITS ---
12/13/2021 No Primary Care Physician Re : Upper GI endoscopy procedure for Anthony Elliott Dear Care Physician This procedure was performed on Monday, December 13, 2021. My impressions and recommendations are as follows: Impressions : - Z-line irregular, 37 cm from the incisors. Biopsied. - Erythematous mucosa in the antrum. Biopsied. - No gross lesions in the first portion of the duodenum. Recommendations : - Discharge patient to home. - Resume previous diet. - Continue present medications. - Await pathology results. My findings are described in the full procedure note, which is enclosed. If I can be of further assistance, please feel free to contact me at . Sincerely, Christiano Morales, 12/13/2021 4:23:11 PM This report has been signed electronically.
[2021-12-13] MEDS: Haloperidol Lactate 5 MG/ML Vial 1 MG IV (16:45)
== END 2021-12-13 18:20 | disposition home or self-care (01) ==
LOC: EN 14:36 → AC 14:39
PROVIDERS: Anesthesiology; Visit Provider Internal Medicine Gastroenterology
PROC: 0DJ08ZZ Inspection of Upper Intestinal Tract, Via Natural or Artificial Opening Endoscopic (ICD-10-PCS; CPT 43235; principal; 2021-12-13 15:25)
DX: K29.70 Gastritis, unspecified, without bleeding (principal); K21.00 Gastro-esophageal reflux disease with esophagitis, without bleeding; Z90.49 Acquired absence of other specified parts of digestive tract
CPT/HCPCS: 43239; 81025; 88305; 88313; 88342; J7120; J2405

== ENCOUNTER 2024-12-28 14:25 | Emergency (ER) | payer SELFPAY ==
--- OUTSIDE RECORDS SUMMARY | 2024-09-26 16:58 | XMS RPT_ITS ---
Author Name Auto Generated Organization [facility] Care Team Providers Care Pre Planning Advisor Name Role Phone ROSS MUNROE Attending Unavailable COREY ARCEO Attending Unavailable PROBLEMS DATE TYPE CONDITION / CODE ATTENDING STATUS AMY RCE 09/26/2024 Unknown Local infection of the skin and subcutaneous tissue, unspecified / L08.9(ICD-10) ROSS MUNROE Active [facility] 09/26/2024 Unknown Other specified bacterial agents as the cause of diseases classified elsewhere / B96.89(ICD-10) ROSS MUNROE Active [facility] 07/24/2024 Unknown Rash / [id number]() COREY ARCEO Active [facility] PROCEDURES No Procedure Records Found RESULTS ALLERGIES No Allergies Records Found ENCOUNTERS ADMIT/DISCHARGE ACCOUNT NUMBER ADMITTING ENCOUNTER CLASS LOCATION SOURCE 09/26/2024/ 5 [id number] [facility] 09/26/2024 [id number] [facility] 07/24/2024/ 5 [id number] [facility] PAYERS No Payer Records Found
[2024-12-28 14:26] VITALS: BP 136/88; PULSE 89; RESP 14; TEMP 36.6; O2SAT 99; BMI 32.5
--- NOTE | 2024-12-28 15:07 | EX.ED.GENINJ ---
HPI History of Present Illness Chief Complaint: Laceration Narrative Narrative: Chief complaint and HPI: 29-year-old female with no significant past medical history presents for evaluation of finger laceration. Patient states she was using a brand-new clean knife to cut frozen butter when the knife slipped and cut her distal left second finger. Endorses some mild throbbing. Denies any numbness or tingling. Denies injury elsewhere. Review of systems: See HPI Medications: As listed on the chart Allergies: As listed on the chart PFSH: Per chart Vital signs: As listed on the chart. Reviewed. Physical exam: Gen: A&O x3, NAD Head: Normocephalic, atraumatic Eyes: No sclera icterus, conjunctiva clear ENT: Moist mucous membranes CV: Regular rate Resp: Nonlabored respirations Musc: Full range of motion of the left hand including all the fingers, no deformity, patient has a V-shaped laceration to the left second distal finger that does not involve the nailbed or nail, good capillary refill, sensation intact, radial pulse +2 Skin: Warm, dry Psych: Cooperative, appropriate mood and affect PFSH PFSH Medical History Anxiety Back pain Back problem Blackout Constipation Depression Gastric reflux Headache Hearing problem Migraine headache Non-smoker Wears glasses Home Medications ?Medication ?Instructions ?Recorded ?Last Taken ?Type Ranitidine [Zantac] 150 mg PO DAILY PRN allergies 06/08/18 06/07/18 History 150 MG pantoprazole 40 mg tablet,delayed 40 mg PO DAILY #30 tabs 11/14/21 Unknown Rx release Allergy/AdvReac Type Severity Reaction Status Date / Time No Known Allergies Allergy Verified 12/28/24 14:25 Surgical History History of carpal tunnel surgery of right wrist Hx of cholecystectomy Social History Smoking Status: Never smoker substance use type: does not use EXAM Physical Exam Const Vital Signs: 12/28/24 14:26 Temperature 97.8 F Temperature Source Temporal Pulse Rate 89 Respiratory Rate 14 Blood Pressure 136/88 H Blood Pressure Mean 104 Pulse Ox 99 Oxygen Delivery Method Room Air MDM MDM MDM Narrative Medical decision making narrative: 29-year-old female with no significant past medical history presents for evaluation of finger laceration. Patient states she was using a brand-new clean knife to cut frozen butter when the knife slipped and cut her distal left second finger. Endorses some mild throbbing. See physical exam findings. I do not think any x-ray is needed. Tylenol given for pain. Laceration will require repair. Patient tolerated laceration repair well. Patient stable to discharge home. Laceration Repair Indication: Laceration Location: 2.5 cm V-shaped laceration to the distal left second finger Consent: Risks, benefits, and alternatives discussed with patient and consent obtained Procedure: A time out was performed. The area was prepped and draped in the usual sterile fashion. Local anesthesia was achieved using 1% Lidocaine without epinephrine. The wound was copiously irrigated. 9 sutures were placed using 4-0 Ethilon in an interrupted fashion. The estimated blood loss was minimal. A dressing was applied to the area with Bacitracin. The patient tolerated the procedure well without complications. Foreign Material: None Debridement:None Follow-up: Anticipatory guidance, as well as standard post-procedure care, was explained. Return precautions are given. Follow-up visit set for suture removal and evaluation of the laceration. Impression: 1. Laceration to the left second finger, status post suture repair Discharge Plan Triage Chief Complaint: Laceration ED Provider: Olaf Seth Dx/Rx/DC Orders Prescriptions: No Action pantoprazole 40 mg tablet,delayed release (DR/EC) 40 mg PO DAILY Qty: 30 3RF Ranitidine [Zantac] 150 MG tablet 150 mg PO DAILY PRN (Reason: allergies) Primary Care Provider: Care Physician,No Primary Referrals: Care Physician,No Primary [Primary Care Provider, Medical] Print Language: Bel[place]ian
[2024-12-28] MEDS: Lidocaine 1% (20 ml mdv) 20 ML Vial INFILT (15:13)
[2024-12-28 16:30] VITALS: BP 134/64; PULSE 71; RESP 16; TEMP 36.6; O2SAT 100
== END 2024-12-28 16:32 | disposition home or self-care (01) ==
PROVIDERS: Emergency Provider Surgery; Visit Provider Surgery
DX: S61.211A Laceration without foreign body of left index finger without damage to nail, initial encounter (principal); W26.0XXA Contact with knife, initial encounter; Y93.G1 Activity, food preparation and clean up; K21.9 Gastro-esophageal reflux disease without esophagitis; Z79.899 Other long term (current) drug therapy; Z90.49 Acquired absence of other specified parts of digestive tract
CPT/HCPCS: 12001; 99283